=== PATIENT | female | born 1985 | race American Indian/Alaskan Native ===

== ENCOUNTER 2020-03-16 13:27 | Inpatient (IN) | payer MEDICAID ==
--- NOTE | 2020-03-26 10:56 | History and Physical Report ---
History of Present Illness Date of examination: 03/26/20 History of present illness: Pt is a 34 yo with large fibroid uterus and pelvic pain. No metrorrhagia. Normal timed menses. Past History Past Medical History: no pertinent history Past Surgical History: other (BTL) CREDIT COLLECTIONS ANALYST History: herpes Social history: no significant social history Medications and Allergies Allergies Allergy/AdvReac Type Severity Reaction Status Date / Time No Known Allergies Allergy Unverified 03/22/20 11:48 Home Medications Medication Instructions Recorded Confirmed Last Taken Type No Known Home Medications [No 03/22/20 03/22/20 Unknown History Reported Home Medications] Active Meds: see RN charting Review of Systems All systems: negative (except HPI) - Vital Signs Vital signs: see EMR charting - Physical Exam Cardiovascular: Regular rate, No murmurs Lungs: Positive: Clear to auscultation, Normal air movement Abdomen: Positive: normal appearance (but uterus palpable at the umb level.), soft. Negative: tenderness Genitourinary (Female): Positive: normal external genitalia Vulva: both: normal Vagina: Positive: normal moisture Uterus: Positive: enlarged (20 weeks size) Adnexa: both: normal Results All other labs normal. Assessment and Plan - Patient Problems (1) Fibroid uterus Status: Acute Plan to address problem: PT will present on 03/30 for her scheduled KEVIN and B/L salpingectomy. PT counseled and consented.
[2020-03-27 11:51] LABS: Basophils % (Auto) 0.8 % (0.0-1.8); Eosinophils # (Auto) 0.1 K/mm3 (0.0-0.4); Hematocrit 34.7 % (30.3-42.9); Hemoglobin 11.5 gm/dl (10.1-14.3); Lymphocytes # (Auto) 2.6 K/mm3 (1.2-5.4); Lymphocytes % (Auto) 45.5 % (13.4-35.0); Mean Corpuscular HGB Conc 33 % (30-34); Mean Corpuscular Volume 92 fl (79-97); Monocytes # (Auto) 0.6 K/mm3 (0.0-0.8); Monocytes % (Auto) 10.1 % (0.0-7.3); Platelet Count 336 K/mm3 (140-440); Red Blood Count 3.77 M/mm3 (3.65-5.03)
[2020-03-30] MEDS ORDERED: GABAPENTIN 300 MG CAP PO NR (06:00)
[2020-03-30] MEDS ORDERED: fentaNYL 100 MCG/2 ML INJ IV PRN (06:00)
[2020-03-30] MEDS ORDERED: MIDAZOLAM 2 MG/2 ML INJ IV NR (06:00)
[2020-03-30] MEDS ORDERED: CELECOXIB 200 MG CAP PO NR (06:00)
--- NOTE | 2020-03-30 09:37 | Anesthesia Day of Surgery ---
Anesthesia Day of Surgery - Day of Surgery Patient Examined: Yes Patient H&P Reviewed: Yes Patient is NPO: Yes
--- NOTE | 2020-03-30 09:37 | Anesthesia Consultation ---
Anesthesia Consult and Med Hx Date of service: 03/30/20 - Airway Anesthetic Teeth Evaluation: Good ROM Head & Neck: Adequate Mental/Hyoid Distance: Adequate Mallampati Class: Class II Intubation Access Assessment: Probably Good - Pulmonary Exam CTA: Yes - Cardiac Exam Cardiac Exam: RRR - Pre-Operative Health Status ASA Pre-Surgery Classification: ASA2 Proposed Anesthetic Plan: General Nerve Block: TAP - Pulmonary Hx Smoking: Yes (07/02 PPD) Hx Respiratory Symptoms: No Hx Sleep Apnea: No - Cardiovascular System Hx Hypertension: No Hx Heart Attack/AMI: No Hx Percutaneous Transluminal Coronary Angioplasty (PTCA): No Hx Cardia Arrhythmia: No - Central Nervous System CVA: No - Gastrointestinal Hx Gastroesophageal Reflux Disease: No - Endocrine Hx Renal Disease: No Hx Liver Disease: No Hx Insulin Dependent Diabetes: No Hx Non-Insulin Dependent Diabetes: No Hx Thyroid Disease: No - Other Systems Hx Obesity: No - Additional Comments Anesthesia Medical History Comments: No hx anesthetic complications.
[2020-03-30] MEDS: LACTATED RINGERS 1,000 ML IV SCH ×3 (09:40→23:26)
[2020-03-30] MEDS ORDERED: ceFAZolin/STERILE WATER 2 GM/20 ML SYRINGE IV NR (10:00)
[2020-03-30] MEDS ORDERED: LIDOCAINE (1%) 10 MG/1 ML VIAL 20 ML MDV ONE (11:14)
[2020-03-30] MEDS ORDERED: dexAMETHasone 4 MG/ML VIAL ONE (11:14)
[2020-03-30] MEDS ORDERED: BUPIVACAINE-EPINEPHRINE/PF 0.5%-1:200,000 (30 ML) VIAL INFILTRATI ONE (11:15)
[2020-03-30] MEDS ORDERED: propofoL 200 MG/20 ML VIAL IV ONE (11:35)
[2020-03-30] MEDS ORDERED: ROCURONIUM 50 MG/5 ML INJ IV ONE (11:35)
[2020-03-30] MEDS ORDERED: fentaNYL 100 MCG/2 ML INJ ONE (11:35)
[2020-03-30] MEDS ORDERED: CITRIC ACID-SOD CITRATE 500 ML IV ONE (11:59)
[2020-03-30] MEDS ORDERED: SODIUM CHLORIDE 0.9% IRR 1,500 ML BOTTLE IR ONE ×2 (12:15)
[2020-03-30] MEDS ORDERED: dexAMETHasone 20 MG/5 ML VIAL ONE (13:12)
[2020-03-30] MEDS ORDERED: KETOROLAC 30 MG/1 ML INJ ONE (13:12)
[2020-03-30] MEDS ORDERED: NEOSTIGMINE 10MG/10 ML INJ MDV ONE (13:12)
[2020-03-30] MEDS ORDERED: ONDANSETRON 4 MG/2 ML INJ ONE (13:12)
[2020-03-30] MEDS ORDERED: GLYCOPYRROLATE 0.4 MG/2 ML INJ ONE (13:12)
[2020-03-30] MEDS ORDERED: MAGNESIUM HYDROXIDE (MOM) ORAL LIQD UDC PO PRN (13:20)
[2020-03-30] MEDS ORDERED: ACETAMINOPHEN 325 MG TAB PO PRN (13:20)
[2020-03-30] MEDS ORDERED: ONDANSETRON 4 MG/2 ML INJ IV PRN ×2 (13:20→13:26)
[2020-03-30] MEDS ORDERED: NALOXONE 0.4 MG/1 ML INJ IV PRN (13:25)
[2020-03-30] MEDS ORDERED: diphenhydrAMINE 50 MG/ML VIAL IV PRN (13:26)
[2020-03-30] MEDS ORDERED: PHENYLEPHRINE/NS 1,000 MCG/10 ML SYRINGE (OR USE) IV ONE (13:30)
[2020-03-30] MEDS: HYDROmorphone 1 MG/1 ML INJ IV PRN ×2 (13:45→13:55)
--- NOTE | 2020-03-30 14:05 | Post Operative Note ---
Date of procedure: 03/30/20 Pre-op diagnosis: fibroids and pelvic pain Post-op diagnosis: same Findings: Large multi-fibroid uterus. 20 weeks total in size. The largest fibroid was a pedunculated myoma that was fundal. Both tubes and ovaries were within normal limits. Procedure: Indication: Patient is a 34-year-old with pelvic pain as well as multiple myomas. Patient as result is here for her total abdominal hysterectomy and bilateral salpingectomy. Procedure: Patient taken to the operating room and prepped and draped in the usual fashion. Pfannenstiel skin incision was made and carried down to the underlying fascia. Fascia was incised and the incision was extended bilaterally. Rectus fascia dissected off the rectus muscle both superiorly and inferiorly. Peritoneum identified tented up and entered. Peritoneal incision extended superiorly and inferiorly with good visualization of the bladder. Bladder blade was placed. The uterus was exteriorized. Bowel was packed away with moist lap sponges. Attention was first turned to the round ligament on the right side which was clamped cauterized and cut with the LigaSure device. Then the attachments of the fallopian tube were dissected off using the LigaSure. The LigaSure device was used to cauterize and cut the ovarian ligament. The bladder flap on the right side was then created. Tissue was then skeletonized around the uterine artery. The uterine artery was then clamped cauterized and cut with the LigaSure. At this point good hemostasis was noted. Attention was then turned to the left side where everything was done in the exact same fashion. At this point both uterine arteries were clamped and cauterized. The uterus was then amputated using the Bovie. Good hemostasis was noted. At this point the O'Sebastián O'Martinez retractor was placed. Attention at this point was turned to removal of the cervix. Dissection was carried down and the uterosacral/cardinal ligaments were clamped cut and suture ligated using 0 Vicryl on both sides. Eventually the cervicovaginal junction was reached. The cervix was excised from the vaginal attachments and the cervix was sent to pathology. The vaginal cuff was reapproximated using interrupted 0 Vicryl stitches. Good hemostasis noted after. At this point the pelvis was well irrigated. Good hemostasis still noted. Surgicel was placed over all the areas of dissection. All the sponges and the retractor were removed. Attention was turned to the rectus fascia which was reapproximated with 0 Vicryl in a running fashion. Subcutaneous tissue was irrigated and reapproximated with 2-0 Vicryl in a running fashion. Skin was closed with 4-0 Vicryl in a subcuticular fashion followed by Dermabond. The procedure was concluded at this point and the patient tolerated the procedure well. All instrument and lap counts were correct. Anesthesia: JOHANNE Surgeon: INDRA ROBERSON Superintendent Automotive: CHULA OCHOA JR Estimated blood loss: other (100 cc) Pathology: list (Uterus and cervix and tubes) Specimen disposition: to lab Condition: stable Disposition: PACU
--- NOTE | 2020-03-30 15:06 | Post Anesthesia Evaluation ---
- Post Anesthesia Evaluation Patient Participated: Yes Airway Patent: Yes Stable Respiratory Function: Yes Nausea/Vomiting: No Temp > 96.8F: Yes Pain Manageable: Yes Adequeate Hydration: Yes Anesthesia Complications: No
[2020-03-30] MEDS: MORPHINE/NS 30 MG-30 ML PCA INJ IV SCH (16:21)
[2020-03-30] MEDS: IBUPROFEN 600 MG TAB PO SCH ×2 (18:30→23:26)
[2020-03-31] MEDS: IBUPROFEN 600 MG TAB PO SCH ×2 (05:01→16:45)
[2020-03-31] MEDS: MORPHINE/NS 30 MG-30 ML PCA INJ IV SCH (05:17)
--- NOTE | 2020-03-31 05:50 | Progress Note ---
Assessment and Plan - Patient Problems (1) Fibroid uterus Current Visit: No Status: Acute (2) S/P hysterectomy Current Visit: Yes Status: Acute Plan to address problem: stable POD 1. Cont postop care. Hgn later today. 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 Subjective - Subjective Date of service: 03/31/20 Interval history: Pt doing well. Good pain control. No F/C/N/V/CP/SOB. Delgadillo just removed. No flatus. Clears tolerated. OOB to chair. Objective - Vital Signs Latest vital signs: Vital Signs Temp Pulse Resp BP BP Pulse Ox 03/30/20 23:56 81 99 03/30/20 23:55 98.2 F 88 20 121/58 99 03/30/20 20:37 98.6 F 75 20 112/67 98 03/30/20 15:07 100 03/30/20 15:03 97.4 F L 67 16 113/57 100 03/30/20 15:02 97.4 F L 60 16 113/67 100 03/30/20 14:24 57 L 14 109/63 100 03/30/20 14:09 58 L 16 114/66 100 03/30/20 13:55 16 03/30/20 13:54 98.1 F 56 L 16 112/61 100 03/30/20 13:45 16 03/30/20 13:39 60 19 107/61 100 03/30/20 13:34 54 L 16 109/64 100 03/30/20 13:29 58 L 16 104/60 100 03/30/20 13:24 97.3 F L 75 16 115/59 100 03/30/20 11:49 20 03/30/20 11:27 70 16 112/66 100 03/30/20 11:22 70 16 110/66 100 03/30/20 11:18 20 03/30/20 11:17 77 20 123/68 100 03/30/20 11:10 20 03/30/20 09:35 98.6 F 78 20 113/65 98 03/30/20 09:25 98.6 F 78 20 113/65 98 Intake and Output 03/30/20 03/30/20 03/31/20 15:59 23:59 07:59 Intake Total 1320 1056.667 240 Output Total 053 412 5749 Balance 935 906.667 -960 Intake: IV 1320 756.667 Lactated Ringers 1,000 ml 620 756.667 @ 100 mls/hr IV DIRECT JORJE Rx#:[id number] Oral 300 240 Output: Urine 945 630 4600 Indwelling Catheter 150 1200 Uretheral (Delgadillo) 25 Other: Total, Intake Amount 300 240 Total, Output Amount 150 1200 Voiding Method Toilet Indwelling Catheter # Voids Indwelling Catheter 1 Weight 74 kg - Exam Abdomen: Present: normal appearance, soft, tenderness (approriately tender) Incision: Present: dressed (clean)
[2020-03-31 06:53] LABS: Hematocrit 32.2 % (30.3-42.9); Hemoglobin 10.7 gm/dl (10.1-14.3)
[2020-03-31] MEDS ORDERED: oxyCODONE /ACETAMINOPHEN 5-325MG TAB PO PRN (08:00)
[2020-03-31] MEDS ORDERED: PETROLATUM,WHITE 30 GM OINT TP ONE (09:43)
[2020-03-31] MEDS ORDERED: LACTATED RINGERS 1,000 ML IV SCH (12:00)
[2020-03-31] MEDS: HYDROcodone/ACETAMINOPHEN 5-325 MG TAB PO PRN (20:11)
[2020-04-01] MEDS: IBUPROFEN 600 MG TAB PO SCH ×2 (00:10→06:23)
[2020-04-01] MEDS: HYDROcodone/ACETAMINOPHEN 5-325 MG TAB PO PRN (00:32)
[2020-04-01] MEDS: traMADol 50 MG TAB PO PRN ×2 (04:30→10:30)
[2020-04-01 09:09] VITALS: BP 137/68
--- NOTE | 2020-04-01 09:12 | Progress Note ---
Assessment and Plan - Patient Problems (1) Fibroid uterus Current Visit: No Status: Acute (2) S/P hysterectomy Current Visit: Yes Status: Acute Plan to address problem: stable POD 2. D/C home. RTO 2 weeks. Subjective - Subjective Date of service: 04/01/20 (POD 2) Interval history: Pt doing well. Good pain control with Motrin/Ultram. No F/C/N/V/CP/SOB. Positive voiding, flatus, reg diet and OOB ambulating. No complaints. Objective - Vital Signs Latest vital signs: Vital Signs Temp Pulse Resp BP BP Pulse Ox 04/01/20 08:08 98.5 F 74 18 137/68 97 03/31/20 23:56 98.2 F 85 20 116/75 98 03/31/20 20:19 98.9 F 78 20 123/62 95 03/31/20 16:32 18 03/31/20 16:00 98.5 F 70 18 120/68 98 Intake and Output 03/31/20 04/01/20 04/01/20 23:59 07:59 15:59 Intake Total 240 480 240 Output Total 300 Balance 240 180 240 Intake: Oral 240 480 240 Output: Urine 300 Void 300 Other: Total, Intake Amount 240 240 240 Total, Output Amount 300 Voiding Method Toilet # Voids Void 1 - Exam Incision: Present: normal, dry, intact
--- NOTE | 2020-04-01 09:14 | Discharge Summary ---
Providers - Providers Date of Admission: 03/30/20 09:00 Attending physician: INDRA ROBERSON Primary care physician: NOLBERTO CHARLES Hospitalization Reason for admission: other (KEVIN and B/L salpingectomy.) Hospital course: PT did well s/p her KEVIN and B/L salpingectomy on 03/30. Uncomplicated surgery. See OP report for details. No postop issues. Sent home with Ultram and Motrin. RTO 2 weeks. Condition at discharge: Stable Disposition: - TO HOME OR SELFCARE - Discharge Diagnoses (1) Fibroid uterus Status: Acute (2) S/P hysterectomy Status: Acute Plan - Discharge Medications Prescriptions: Ibuprofen [Motrin 600 MG tab] 600 mg PO Q6HR PRN #30 tablet PRN Reason: Pain , Severe (7-10) traMADoL [Ultram 50 MG tab] 50 mg PO Q4H PRN #30 tablet PRN Reason: Pain, Moderate (4-6) - Provider Discharge Summary Additional instructions: [] Smoking cessation referral if applicable(refer to patient education folder for contact #) [] Refer to [facility]'s [facility] Booklet Call your doctor immediately for: * Fever > 100.5 * Heavy vaginal bleeding ( >1 pad per hour) * Severe persistent headache * Shortness of breath * Reddened, hot, painful area to leg or breast * Drainage or odor from incision. * Keep incision clean and dry at all times and follow doctor's instructions regarding bathing/showering - Follow up plan Follow up: INDRA ROBERSON MD [Staff Physician] - 14 Days
== END 2020-04-01 10:45 | disposition home or self-care (01) | DRG 743 ==
LOC: 3A 03-30 09:00 → OB 03-30 14:19
PROVIDERS: ADMIT Obstetrics & Gynecology; ATTEND Obstetrics & Gynecology
PROC: 0UT90ZZ Resection of Uterus, Open Approach (ICD-10-PCS; principal; 2020-03-30)
PROC: 0UT70ZZ Resection of Bilateral Fallopian Tubes, Open Approach (ICD-10-PCS; 2020-03-30)
DX: D25.1 Intramural leiomyoma of uterus (principal); Z20.828 Contact with and (suspected) exposure to other viral communicable diseases; Z30.2 Encounter for sterilization
CPT/HCPCS: 36415; 64450; 84703; 85014; 85018; 85025; 86850; 86900; 86901; 88307; 88309; G0378; A6250; J1100; J1170; J1885; J2250; J2270; J2370; J2405; J2704; J2710; J3010; J7120; U0003-CS